=== PATIENT | female | born 1995 | race African-American/Black ===

== ENCOUNTER 2017-10-20 18:15 | Emergency (ER) | payer MEDICAID, OTHER ==
[~2017-10-20] VITALS: Ht 139.7 cm; Wt 44.0 kg
[~2017-10-20 18:15] MED LIST: ALBU0.086 INH; ALBU17I INH; AMOX400S3 PO; TRIA.1%T TOP; [UNRECOGNIZED DRUG - CODE] PO; [UNRECOGNIZED DRUG - CODE] PO
[2017-10-20 18:17] VITALS: BP 119/75; PULSE 91; RESP 14; TEMP 97.5; O2SAT 100
[2017-10-20] MEDS ORDERED: NEOMYCIN/POLYMYXIN/HYDROCORT OTIC SOLN 10 ML BTL LEFT EAR ONE (19:00)
[2017-10-20] MEDS ORDERED: CORTI10A LEFT EAR (19:13)
--- NOTE | 2017-10-20 19:28 | PD ---
HPI Chief Complaint: ENT Complaint Time Seen by Provider: 18:42 Travel History International Travel<30 days: No Contact w/Intl Traveler<30days: No Traveled to known affect area: No History of Present Illness HPI 22-year-old female complains of 4-5 days left-sided otalgia or otorrhea and left -sided tenderness. No fever. Constant otalgia also worse with palpation. No radiation. Severity moderate. Timing constant. Patient also complains of acne and requests an antibiotic for it. PFSH Past Medical History ADHD: Yes Asthma: Yes Weight (Kg): 3 Cancer: No Cardiovascular Problems: No Developmental Delay: No Diabetes: No Diminished Hearing: No Headaches: Yes (Sometimes.) Psychiatric: Yes (ODD, MOOD SWINGS) Immunizations Current: Yes Migraines: No Seizures: No Thyroid Disease: No Ulcer: No Tetanus Vaccination: Unknown Influenza Vaccination: No ?: Not LMP: LAST MONTH : 0 Past Surgical History Appendectomy: No Section: No Cholecystectomy: No Other Surgery: No Social History Alcohol Use: No Tobacco Use: No Substance Use: No Allergies-Medications (Allergen,Severity, Reaction): Coded Allergies: No Known Allergies (Verified Adverse Reaction, Unknown, 10/20/17) Reported Meds & Prescriptions Reported Meds & Active Scripts Active Mqwkzplc-Bnyqyjzvj-ML Otic Drops (Neomycin/Polymyxin/Hydrocortisone) 1 % Soln 4 Drop LEFT EAR QID 10 Days Review of Systems General / Constitutional: No: Fever HENT: Positive: Ear Discharge, Earache, No: Rhinitis, Rhinorrhea Respiratory: No: Cough, Shortness of Breath Physical Exam Narrative GENERAL: Well-nourished well-developed 22-year-old female lying on the bed using the smart phone EARS: Otitis externa on the left side no mastoid tenderness. The external canal is occluded secondary to swelling and inflammation of the left side. On the right side there is minimal cerumen although the TM is visualized and appears mak with visualization of normal bony landmarks SKIN: Warm and dry. HEAD: Normocephalic. EYES: No scleral icterus. No injection or drainage. NECK: Supple, trachea midline. No JVD or lymphadenopathy. CARDIOVASCULAR: Regular rate and rhythm without murmurs, gallops, or rubs. Data Data Last Documented VS Vital Signs Date Time Temp Pulse Resp B/P (MAP) Pulse Ox O2 Delivery O2 Flow Rate FiO2 11/25/17 18:17 97.5 91 14 119/75 (90) 100 Vital signs reviewed Orders Orders Hskgreab-Ewengnaa-Rq Otic Soln (Cortispo (10/20/17 19:00) Ed Discharge Order (10/20/17 19:29) MDM Medical Decision Making Medical Screen Exam Complete: Yes Emergency Medical Condition: Yes Medical Record Reviewed: Yes Differential Diagnosis Otitis externa, otitis externa, mastoiditis, malignant otitis, cancer, acne, acne Narrative Course Corticosporin drops. The patient was provided with soren here. Return precautions discussed. Diagnosis Primary Impression: Otitis externa of left ear Qualified Codes: H60.502 - Unspecified acute noninfective otitis externa, left ear Referrals: Iván Burnham MD 2 days Med/Other Pt SpecificInfo: Prescription(s) given Scripts Tikckzvc-Ehoxjpxny-JG Otic Drops (Howxuakn-Xnvodgvtc-DM Otic Drops) 1 % Soln 4 DROP LEFT EAR QID for Infection for 10 Days, #1 BOTTLE 0 Refills Prov: Paolo Snider MD 10/20/17 Disposition: 01 DISCHARGE HOME Condition: Stable Paolo Snider MD Oct 20, 2017 19:28
== END 2017-10-20 19:41 | disposition home or self-care (01) ==
LOC: NEPD 18:15
DX: F90.9 Attention-deficit hyperactivity disorder, unspecified type (principal); J45.909 Unspecified asthma, uncomplicated; F91.3 Oppositional defiant disorder
CPT/HCPCS: 99283